=== PATIENT | female | born 1980 | race Caucasian/White ===

== ENCOUNTER 2020-11-06 05:51 | Emergency (ER) | payer BC, SELFPAY ==
[2020-11-06 05:52] VITALS: BP 155/87; PULSE 98; RESP 16; TEMP 36.8; O2SAT 99; BMI 43.0
--- NOTE | 2020-11-06 06:31 | RAD_ITS ---
STUDY: X-RAY - LEFT KNEE REASON FOR EXAM: Female, 40 years old. Pain after injury. TECHNIQUE: 3 view(s) of the knee. COMPARISON: None. FINDINGS: No visible fracture. No osseous destruction. Alignment anatomic. No significant degenerative changes. Soft tissues unremarkable. RAD/Knee 4 or More Views IMPRESSION: No acute osseous abnormality. Electronically Signed: Yovayn Nuñez MD at 7:01 EDT Tel , Service support ,
--- NOTE | 2020-11-06 06:40 | ED.VIS.LOWEX ---
HPI History of Present Illness Chief Complaint: Lower Extremity Injury Informant: patient Occured/Mechanism Mechanism/Context: Yes fall Onset/Context/Timing Onset: Days (5) Context: Sudden Onset Timing: Continuous Quality of Pain: Burning Location: Left knee Worsened by: Nothing Relieved by: Nothing Associated Symptoms Associated Symptoms: Positive for Parasthesia Narrative Narrative: Patient presents with a left knee injury that occurred 5 days ago. Patient states she tripped while she was pumping gas and fell at that time. Patient states she landed directly on her left knee. Patient states she has been able to ambulate for the past 5 days but it is gotten more painful. Patient describes her pain as burning. Patient states nothing makes it worse and nothing makes it better. Patient admits to some tingling over the anterior aspect of the left knee. PFSH PFSH Home Medications Omeprazole [Prilosec] 20 mg PO DAILY 08/29/16 [History Last Taken Unknown] mv,Ca,min-folic acid-vit K1 [One-A-Day Women's 50 Plus Tab] 1 ea PO DAILY 08/29/16 [History Last Taken Unknown] Allergy/AdvReac Type Severity Reaction Status Date / Time buspirone HCl [From BuSpar] Allergy Other Verified 11/06/20 05:56 ciprofloxacin [From Cipro] Allergy Rash Verified 11/06/20 05:56 ciprofloxacin HCl Allergy Rash Verified 11/06/20 05:56 [From Cipro] latex Allergy Rash Verified 11/06/20 05:56 Surgical History History of cholecystectomy Social History Smoking Status: Current every day smoker tobacco type: cigarettes ROS ROS ED Constitutional Constitutional ED: Denies chills or fever(s) Eyes Eyes: Denies blurry vision or change in vision ENT ENT ED: Denies rhinorrhea or sore throat Cardiovascular Cardiovascular: Denies chest pain or palpitations Respiratory/Chest Respiratory/Chest: Reports dyspnea; Denies cough Gastrointestinal Gastrointestinal: Denies nausea or vomiting Genitourinary Genitourinary ED: Denies dysuria or hematuria Musculoskeletal Musculoskeletal: Denies back pain or neck pain Integumentary Denies abscess or rash Neurologic Neurologic: Reports paresthesias LLE (Left knee); Denies headache(s) or weakness Allergic/Immunologic Allergic/Immunologic ED: Denies mouth swelling or urticaria EXAM Physical Exam Const Vital Signs: 11/06/20 05:52 11/06/20 07:16 Temperature 98.3 F Temperature Source Oral Pulse Rate 98 74 Respiratory Rate 16 18 Blood Pressure 155/87 H 134/78 H Blood Pressure Mean 109 Pulse Ox 99 99 Oxygen Delivery Method Room Air Positive well nourished, well developed and obese General Appearance ED: well developed Nutritional Appearance: obese HEENT Reports moist mucous membranes Neck full ROM and supple Extremity Extremity Narrative: There is tenderness with mild edema and ecchymosis over the anterior aspect of the left knee. Extensor mechanism is intact. Range of motion was limited in all motions of the left knee secondary to pain. Posterior tibial pulses are equal bilaterally. Neuro oriented x3, CN's II-XII intact bilaterally, moves all extremities and no sensory deficits noted Sensorium / Orientation: alert Motor Exam: strength 5/5 throughout Psych mental status grossly normal MDM MDM MDM Narrative Medical decision making narrative: X-rays of the left knee were obtained. There are 4 views. On my interpretation, there is no acute fracture. There is no dislocation. There is no soft tissue swelling. Radiologist also interpreted the x-rays and agrees. Patient was advised of the findings. Patient was instructed to ice and elevate the left knee. Patient was instructed to take Tylenol or ibuprofen as needed for pain. Patient was instructed to follow-up with her primary care physician in 5 to 7 days for reevaluation. Patient understood and was agreeable with the plan. All questions were answered. Radiography Diagnostic Testing: Radiology Impression Knee X-Ray 11/06/20 06:31 IMPRESSION: No acute osseous abnormality. Electronically Signed: Yovany Nuñez MD at 7:01 EDT Tel , Service support , Discharge Plan Triage Chief Complaint: Lower Extremity Injury ED Provider: Сергей Dumont Dx/Rx/DC Orders Clinical Impression: Contusion of left knee, initial encounter Instructions: ED Contusion, Lower Extremity Prescriptions: No Action One-A-Day Women's 50 Plus 1 EACH tablet 1 ea PO DAILY RF: 0 Omeprazole [Prilosec] 40 MG capsule 20 mg PO DAILY RF: 0 Primary Care Provider: Care PhysicianLucy Primary Referrals: Care Physician,No Primary [Primary Care Provider] - 3-5 Days Disposition Disposition: Home, self care Discharge Date/Time: 11/06/20 07:17
[2020-11-06 07:16] VITALS: BP 134/78; PULSE 74; RESP 18; O2SAT 99
== END 2020-11-06 07:17 | disposition home or self-care (01) ==
PROVIDERS: Emergency Provider Emergency Medicine
DX: S80.02XA Contusion of left knee, initial encounter (principal); W01.0XXA Fall on same level from slipping, tripping and stumbling without subsequent striking against object, initial encounter; Y93.89 Activity, other specified; Y92.524 Gas station as the place of occurrence of the external cause; Y99.9 Unspecified external cause status; F17.210 Nicotine dependence, cigarettes, uncomplicated; Z79.899 Other long term (current) drug therapy
CPT/HCPCS: 73564; 99282

== ENCOUNTER → 2023-10-03 | Outpatient (CLI) | payer BC, SELFPAY ==
--- NOTE | 2023-10-03 11:34 | RAD_ITS ---
STUDY: X-RAY - RIGHT WRIST REASON FOR EXAM: Female, 43 years old. PAIN TECHNIQUE: 3 view(s) of the wrist were obtained. COMPARISON: None. FINDINGS: Normal visualized distal radius and ulna. Normal radiocarpal articulation. Normal distal radioulnar articulation. Normal carpal bones. Normal carpal articulations. Normal carpometacarpal articulation of the thumb. Normal second through fifth carpometacarpal articulations. Normal visualized metacarpal bones. The soft tissue structures are unremarkable. There is no demonstrated acute fracture. RAD/Wrist min 3 Views IMPRESSION: Normal x-ray examination of the wrist. Electronically Signed: Giuseppe Stewart MD at 20:57 EDT ,
--- NOTE | 2023-10-03 11:37 | RAD_ITS ---
STUDY: X-RAY - LEFT WRIST REASON FOR EXAM: Female, 43 years old. Pain, decreased range of motion TECHNIQUE: 3 view(s) of the wrist were obtained. COMPARISON: None. FINDINGS: Normal visualized distal radius and ulna. Normal radiocarpal articulation. Normal distal radioulnar articulation. Normal carpal bones. Normal carpal articulations. Normal carpometacarpal articulation of the thumb. Normal second through fifth carpometacarpal articulations. Normal visualized metacarpal bones. The soft tissue structures are unremarkable. RAD/Wrist min 3 Views IMPRESSION: Normal x-ray examination of the wrist. Electronically Signed: Gabriel Carlson MD at 23:34 EDT ,
[2023-10-03 15:27] LABS: Absolute Lymphocyte Count 3.05 X10^3/uL (0.83-4.51); Absolute Neutrophil Count 4.7 X10^3/uL (2.0-7.7); Basophil# 0.04 X10^3/uL; Basophil% 0.5 % (0-1); Eosinophil# 0.04 X10^3/uL; Eosinophils% 0.5 % (0-5); Hemoglobin 15.1 g/dL (12.0-15.0); Lymphocyte # 3.05 X10^3/ul (0.83-4.51); Lymphocyte % 37.1 % (19-41); Mean Corp Hgb Conc 34.3 g/dL (32-36); Mean Corpuscular Hgb 31.8 pg (27.0-32.0); Mean Corpuscular Volume 92.6 fL (81-99); Mean Platelet Vol. 9.9 fl (6.2-12.0); Monocyte# 0.41 X10^3/uL; NRBC Flagged by Analyzer 0 % (0-5); Neutrophil # 4.67 X10^3/uL (2.7-7.7); Neutrophil % 56.7 % (47-70); Platelet Count 277 K/mm3 (150-450); RBC Distribution Width CV 12.9 % (11.6-14.6); RBC Distribution Width SD 43.7 fl (35.1-43.9); Red Blood Count 4.75 M/mm3 (4.2-5.4); White Blood Count 8.2 K/mm3 (4.4-11.0)
[2023-10-03 15:46] LABS: Hemoglobin A1c 5.1 % (3.8-5.6)
[2023-10-03 15:54] LABS: AST(SGOT) 16 U/L (15-37); Alanine Aminotransfer ALT/SGPT 28 U/L (13-56); Albumin, Serum 3.7 g/dL (3.2-5.0); Alkaline Phosphatase 73 U/L (45-117); Anion Gap 6 (5-15); BUN 10 mg/dL (7-18); BUN/Creat Ratio 16.3 RATIO (10-20); Calcium,Total 9.3 mg/dL (8.5-10.1); Chloride 109 mmol/L (98-107); Cholesterol 178 mg/dL (200); Creatinine, Serum 0.61 mg/dL (0.55-1.02); EST Glomerular Filtration Rate 113 mL/min (>60); Est Glom Filt Rate - Afr Amer 137 mL/min (>60); Globulin 3.8 g/dL (2.2-4.2); Glucose 90 mg/dL (74-106); High Density Lipoprotein 37 mg/dL; Potassium 3.9 mmol/L (3.5-5.1); Protein, Total 7.5 g/dL (6.4-8.2); Sodium Level 138 mmol/L (136-145); Thyroid Stim Hormone (TSH) 1.05 uIU/mL (0.358-3.74); Triglycerides 107 mg/dL; Very Low Density Lipoprotein 21 mg/dL (5-40)
[2023-10-03 16:28] LABS: Hepatitis B Surface Antibody Non-Reactive; Hepatitis B Surface Antigen Non-Reactive (Nonreactive); Hepatitis C Antibody Non-Reactive (Nonreactive)
== END | disposition home or self-care (01) ==
LOC: MTLAB 11:31
PROVIDERS: PCP Family Medicine; Referring Provider Family Medicine; Visit Provider Family Medicine
DX: O98.419 Viral hepatitis complicating pregnancy, unspecified trimester (principal); E66.01 Morbid (severe) obesity due to excess calories; M25.539 Pain in unspecified wrist; Z3A.00 Weeks of gestation of pregnancy not specified; O99.210 Obesity complicating pregnancy, unspecified trimester; O99.891 Other specified diseases and conditions complicating pregnancy
CPT/HCPCS: 36415; 73110; 80053; 80061; 83036; 84443; 85025; 86706; 86803; 87340